=== PATIENT | male | born 1940 | race Caucasian/White ===

== ENCOUNTER → 2017-09-20 | Outpatient (CLI) | payer OTHER, BC | LOC: BMCIMAGING 12:33 | PROVIDERS: ATTEND Family Medicine | DX: R05 Cough (principal) ==

== ENCOUNTER → 2018-03-09 | Outpatient (CLI) | payer OTHER, BC | LOC: BMCIMAGING 12:43 | PROVIDERS: ATTEND Specialist | DX: N13.30 Unspecified hydronephrosis (principal); C67.9 Malignant neoplasm of bladder, unspecified; N28.1 Cyst of kidney, acquired ==

== ENCOUNTER → 2018-10-21 | Outpatient (CLI) | payer OTHER, BC | LOC: BMCIMAGING 15:05 | PROVIDERS: ATTEND Physician Assistant | DX: S43.102A Unspecified dislocation of left acromioclavicular joint, initial encounter (principal); M19.012 Primary osteoarthritis, left shoulder ==

== ENCOUNTER → 2018-12-21 | Outpatient (CLI) | payer OTHER, BC | PROVIDERS: ATTEND Otolaryngology | DX: R13.13 Dysphagia, pharyngeal phase (principal); K44.9 Diaphragmatic hernia without obstruction or gangrene; K21.9 Gastro-esophageal reflux disease without esophagitis | CPT/HCPCS: 92611-GN ==